=== PATIENT | male | born 1935 | race Caucasian/White ===

== ENCOUNTER 2020-08-12 18:14 | Emergency (ER) | payer MEDICARE, OTHER ==
--- NOTE | 2020-08-12 19:11 | EDM.PDOC ---
ED HPI GENERAL MEDICAL PROBLEM - General Chief Complaint: Syncope Stated Complaint: [facility] Time Seen by Provider: 08/12/20 18:29 Source of Information: Reports: Patient, RN Notes Reviewed History Limitations: Reports: No Limitations - History of Present Illness INITIAL COMMENTS - FREE TEXT/NARRATIVE: 84-year-old gentleman presents emergency department day via EMS for syncopal event, he does most of his self cares at home he is managing his own diabetes had driven from [place] today had missed a meal and had to eat. Per report deny any seizure-like activity he was incontinent of urine upon arrival - Related Data Allergies Allergy/AdvReac Type Severity Reaction Status Date / Time Iodinated Contrast Media Allergy Other Verified 08/12/20 18:30 Past Medical History HEENT History: Reports: Impaired Vision Respiratory History: Reports: Sleep Apnea Other Respiratory History: noc O2 Genitourinary History: Reports: Prostate Disorder Endocrine/Metabolic History: Reports: Diabetes, Type II - Past Surgical History Head Surgeries/Procedures: Reports: None Respiratory Surgical History: Reports: None Social & Family History - Tobacco Use Tobacco Use Status *Q: Former Tobacco User Used Tobacco, but Quit: No Month/Year Tobacco Last Used: 1989 Second Hand Smoke Exposure: No - Caffeine Use Caffeine Use: Reports: Coffee, Soda - Recreational Drug Use Recreational Drug Use: No ED ROS GENERAL - Review of Systems Review Of Systems: See Below Constitutional: Reports: No Symptoms Respiratory: Reports: No Symptoms Cardiovascular: Reports: Syncope GI/Abdominal: Reports: No Symptoms : Reports: Incontinence ED EXAM, GENERAL - Physical Exam Exam: See Below Exam Limited By: No Limitations General Appearance: Alert, WD/WN, No Apparent Distress Respiratory/Chest: No Respiratory Distress, Lungs Clear, Normal Breath Sounds, No Accessory Muscle Use, Chest Non-Tender Cardiovascular: Regular Rate, Rhythm, No Murmur GI/Abdominal: Soft, Non-Tender #1 Interpretation EKG Date: 08/12/20 Time: 19:23 Rhythm: NSR Ephraim: Normal P-Wave: Present QRS: Normal ST-T: Normal QT: Normal Comparison: NA - No Prior EKG EKG Interpretation Comments: q wave in III old Course - Vital Signs Last Recorded V/S: Last Vital Signs Temp 97.1 F 08/12/20 18:37 Pulse 101 H 08/12/20 19:38 Resp 24 H 08/12/20 19:38 BP 127/102 H 08/12/20 19:38 Pulse Ox 93 L 08/12/20 19:38 - Orders/Labs/Meds Orders: Active Orders 24 hr Category Date Time Status EKG Documentation Completion [RC] ASDIRECTED Care 08/12/20 19:09 Active EKG 12 Lead [EK] Routine Ther 08/12/20 19:09 Ordered Labs: Laboratory Tests 08/12/20 08/12/20 08/12/20 Range/Units 19:20 19:20 19:20 WBC 10.1 (4.5-11.0) K/uL RBC 4.12 L (4.30-5.90) M/uL Hgb 12.4 (12.0-15.0) g/dL Hct 39.0 L (40.0-54.0) % MCV 95 (80-98) fL MCH 30 (27-31) pg MCHC 32 (32-36) % Plt Count 189 (150-400) K/uL Neut % (Auto) 80.0 H (36-66) % Lymph % (Auto) 10.6 L (24-44) % [place] % (Auto) 7.3 H (2-6) % Eos % (Auto) 2.0 (2-4) % Baso % (Auto) 0.1 (0-1) % Sodium 140 (140-148) mmol/L Potassium 4.3 (3.6-5.2) mmol/L Chloride 97 L (100-108) mmol/L Carbon Dioxide 33 H (21-32) mmol/L Anion Gap 14.3 H (5.0-14.0) mmol/L BUN 17 (7-18) mg/dL Creatinine 1.0 (0.8-1.3) mg/dL Est Cr Clr Drug Dosing 59.61 mL/min Estimated GFR (MDRD) > 60 (>60) Glucose 281 H (74-106) mg/dL Lactic Acid 2.1 H (0.4-2.0) mmol/L Calcium 8.7 (8.5-10.1) mg/dL Troponin I (0.000-0.056) ng/mL 08/12/20 Range/Units 19:20 WBC (4.5-11.0) K/uL RBC (4.30-5.90) M/uL Hgb (12.0-15.0) g/dL Hct (40.0-54.0) % MCV (80-98) fL MCH (27-31) pg MCHC (32-36) % Plt Count (150-400) K/uL Neut % (Auto) (36-66) % Lymph % (Auto) (24-44) % [place] % (Auto) (2-6) % Eos % (Auto) (2-4) % Baso % (Auto) (0-1) % Sodium (140-148) mmol/L Potassium (3.6-5.2) mmol/L Chloride (100-108) mmol/L Carbon Dioxide (21-32) mmol/L Anion Gap (5.0-14.0) mmol/L BUN (7-18) mg/dL Creatinine (0.8-1.3) mg/dL Est Cr Clr Drug Dosing mL/min Estimated GFR (MDRD) (>60) Glucose (74-106) mg/dL Lactic Acid (0.4-2.0) mmol/L Calcium (8.5-10.1) mg/dL Troponin I < 0.017 (0.000-0.056) ng/mL Departure - Departure Time of Disposition: 20:46 Disposition: Home, Self-Care 01 Condition: Fair Clinical Impression: Syncope Qualifiers: Syncope type: unspecified Qualified Code(s): R55 - Syncope and collapse Instructions: Syncope, [id number] Referrals: PCP,None [Primary Care Provider] - Forms: ED Department Discharge Additional Instructions: Continue with your regular medications, please follow-up with your primary care in the next 3 to 5 days for reevaluation Sepsis Event Note (ED) - Evaluation Sepsis Screening Result: No Definite Risk - Focused Exam Vital Signs: Vital Signs Temp Pulse Resp BP Pulse Ox 08/12/20 19:38 101 H 24 H 127/102 H 93 L 08/12/20 19:00 104 H 123/78 94 L 08/12/20 18:37 97.1 F 105 H 21 H 130/75 94 L 08/12/20 18:24 97.1 F 105 H 21 H 130/75 94 L - My Orders Last 24 Hours: My Active Orders 08/12/20 19:09 EKG Documentation Completion [RC] ASDIRECTED EKG 12 Lead [EK] Routine - Assessment/Plan Last 24 Hours: My Active Orders 08/12/20 19:09 EKG Documentation Completion [RC] ASDIRECTED EKG 12 Lead [EK] Routine Plan: Assessment Acuity = acute Site and laterality = syncopal event Etiology = unknown Manifestations = none Location of injury = Home Lab values = CBC CMP unremarkable lactic acid 2.1 within normal range, troponin negative EKG demonstrates sinus rhythm no ST elevation or depression Plan He remained asymptomatic while in the emergency department he was hypoxic however he does use oxygen at home, also incontinent he states that this is because he had to go to the bathroom really bad and was unable to hold it having follow-up with his primary care upon return home, This note was dictated using [employer] voice recognition software please call with any questions on syntax or grammar.
== END 2020-08-12 22:26 | disposition home or self-care (01) ==
LOC: JP.ED 18:14
DX: R55 Syncope and collapse (principal); E11.9 Type 2 diabetes mellitus without complications; Z91.041 Radiographic dye allergy status; Z87.891 Personal history of nicotine dependence
CPT/HCPCS: 36415; 80048; 83605; 84484; 85025; 93005; 99284-25